=== PATIENT | male | born 1995 | race Hispanic/Latino ===

== ENCOUNTER 2016-09-30 15:20 | Emergency (ER) | payer SELFPAY ==
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
== END 2016-09-30 16:00 | disposition home or self-care (01) ==
LOC: NAV ERS 15:20
DX: S00.83XA Contusion of other part of head, initial encounter (principal); F17.210 Nicotine dependence, cigarettes, uncomplicated; V89.2XXA Person injured in unspecified motor-vehicle accident, traffic, initial encounter
CPT/HCPCS: 99284

== ENCOUNTER 2020-12-02 12:29 | Emergency (ER) | payer SELFPAY ==
[2020-12-02] MEDS ORDERED: Ondansetron ODT 4 MG TAB ONE (12:59)
[2020-12-03 05:58] LABS: SARS-CoV-2 PCR by NAA Not Detected (NotDetected)
== END 2020-12-02 13:10 | disposition home or self-care (01) ==
LOC: NAV ERS 12:29
DX: R11.2 Nausea with vomiting, unspecified (principal); R19.7 Diarrhea, unspecified; R50.9 Fever, unspecified; Z20.822 Contact with and (suspected) exposure to COVID-19; F17.210 Nicotine dependence, cigarettes, uncomplicated
CPT/HCPCS: 87635; 99284; Q0162; U0003; U0005

== ENCOUNTER 2020-12-06 18:25 | Emergency (ER) | payer SELFPAY ==
[2020-12-06] MEDS ORDERED: Silver Sulfadiazine 50 GM TUBE ONE (18:44)
[2020-12-06] MEDS ORDERED: traMADol HCl 50 MG TAB ONE (18:44)
== END 2020-12-06 19:31 | disposition left against medical advice (07) ==
LOC: NAV ERS 18:25
DX: T23.232A Burn of second degree of multiple left fingers (nail), not including thumb, initial encounter (principal); F17.210 Nicotine dependence, cigarettes, uncomplicated; X19.XXXA Contact with other heat and hot substances, initial encounter
CPT/HCPCS: 99283

== ENCOUNTER 2022-07-11 12:11 | Emergency (ER) | payer OTHER, SELFPAY | END 2022-07-11 13:17 | disposition home or self-care (01) | LOC: NAV ERS 12:11 | DX: J01.90 Acute sinusitis, unspecified (principal) | CPT/HCPCS: 99283 ==